=== PATIENT | male | born 1995 | race African-American/Black ===

== ENCOUNTER 2022-01-23 04:05 | Emergency (ER) | payer BC, SELFPAY ==
[2022-01-23] MEDS ORDERED: Boostrix 0.5 ML (Tdap) VIAL (>/=7 yrs of age) ONE (04:15)
[2022-01-23] MEDS ORDERED: Lidocaine 1% PF 5 ML VIAL ONE (04:41)
[2022-01-23] MEDS ORDERED: Sulfameth/Trimethoprim DS 800-160mg TAB ONE (05:28)
== END 2022-01-23 05:18 | disposition home or self-care (01) ==
LOC: CSHERS 04:05
DX: S61.212A Laceration without foreign body of right middle finger without damage to nail, initial encounter (principal); Z23 Encounter for immunization; W25.XXXA Contact with sharp glass, initial encounter
CPT/HCPCS: 12001; 90471; 90715